=== PATIENT | female | born 1965 | race Caucasian/White ===

== ENCOUNTER 2024-03-28 06:47 | Observation (INO) ==
--- NOTE | 2024-02-19 10:59 | PAT Medication Instructions ---
Medication Instructions Date of Service February 19, 2024 Home Medications Canasa 1 dose MI UD PRN Ulcerative colitis flare up Lactobacillus 40-Bifidobact 3-S.thermophilus 100 billion cell capsule (Probiotic) 1 cap PO QAM inulin-sorbitol 2 gram chewable tablet 1 tab PO QAM multivitamin 1 tab PO QAM omeprazole 10 mg capsule,delayed release 10 mg PO DAILY PRN Heartburn paroxetine HCl 10 mg tablet (Paxil) 10 mg PO HS MEDICATION INSTRUCTIONS: ASK your prescriber and surgeon Canasa 1 dose MI UD PRN Ulcerative colitis flare up DO NOT take the morning of surgery Lactobacillus 40-Bifidobact 3-S.thermophilus 100 billion cell capsule (Probiotic) 1 cap PO QAM inulin-sorbitol 2 gram chewable tablet 1 tab PO QAM multivitamin 1 tab PO QAM Take morning of surgery With a small sip of water, OTHERWISE NOTHING TO EAT OR DRINK AFTER MIDNIGHT: omeprazole 10 mg capsule,delayed release 10 mg PO DAILY PRN Heartburn Take evening before surgery paroxetine HCl 10 mg tablet (Paxil) 10 mg PO HS Other Notes If you have any questions please call us at [phone] or [phone] or [phone] or [phone]
--- NOTE | 2024-03-04 09:26 | Anesthesiology Consultation ---
Date of Service March 04, 2024 Assessment & Plan (1) Encounter for pre-operative examination: Plan - Outpatient joint assessment: Patient is currently scheduled for inpatient pathway. If re-evaluated and patient/surgeon requests outpatient pathway, patient is acceptable candidate for outpatient joint program from anesthesia standpoint pending surgeon's office assessment of pt motivation/support/completion of same day joint program preop requirements. Chart Review Chart Review: Acceptable Risk for Surgery and Patient seen in Pre Admission Testing Teaching & Discussion Pre-Anesthesia Teaching/Discussion Notes: Instructed NPO after midnight before surgery, except medications with 15 cc of water. Medication instructions provided according to the PAT guidelines. History Surgery Operation Date: 03/28/24 08:00 Proposed Procedures p Left Total Knee Arthroplasty - Sundar Moore, Height/Weight Height: 5 ft 5 in Weight: 92.9 kg Allergies Allergy/AdvReac Type Severity Reaction Status Date / Time No Known Drug Allergies Allergy Verified 02/19/24 09:49 NSAIDS (Non-Steroidal AdvReac Severe nsaids can Verified 02/19/24 09:49 Anti-Inflamma flare up patient's Ulcerative Colitis Medications Home Medications Medication Instructions Recorded Confirmed Last Taken Canasa 1 dose MS UD PRN Ulcerative 02/19/24 02/19/24 Unknown colitis flare up Lactobacillus 40-Bifidobact 1 cap PO QAM 02/19/24 02/19/24 Unknown 3-S.thermophilus 100 billion cell capsule (Probiotic) inulin-sorbitol 2 gram chewable 1 tab PO QAM 02/19/24 02/19/24 Unknown tablet multivitamin 1 tab PO QAM 02/19/24 02/19/24 Unknown omeprazole 10 mg capsule,delayed 10 mg PO DAILY PRN Heartburn 02/19/24 02/19/24 Unknown release paroxetine HCl 10 mg tablet (Paxil) 10 mg PO HS 02/19/24 02/19/24 Unknown omega-3 fatty acids-fish oil 360 1 cap PO BID 03/04/24 03/04/24 Unknown mg-1,200 mg capsule (Fish Oil) Additional Notes: Patient states she also takes fish oil, she was advised and it was written on provided medication instructions to stop fish oil 2 weeks before surgery. She verbalized understanding and denied additional medications, questions or concerns. Past Medical History Medical History (Updated 03/04/24 @ 09:33 by Mary Christian PA-C) Anxiety GERD (gastroesophageal reflux disease) rare, controlled and stable per pt History of COVID-19 (06/2020) mild cold symptoms. resolved. Hx of melanoma of skin (05/2023) "early stages" s/p excision Hx of ulcerative colitis "very mild" - uses Canasa suppository PRN. last flare up "sometime in 2022". Motion sickness boating/swinging/carnival rides. no problems in the car Osteoarthritis Post-menopausal Patient denies h/o stroke, seizures, heart attack, heart failure, DM, HTN, blood clots/DVTs or blood transfusions. Exercise / Class Metabolic Activity II 4-5 Yardwork/Stairs/Walk up hill (denies chest discomfort or shortness of breath with one flight of stairs) Past Family History Family History Other No family history of adverse response to anesthesia Past Surgical History Surgical History History of colonoscopy History of dilatation and curettage History of esophagogastroduodenoscopy (EGD) History of melanoma excision (05/2023) Past Anesthesia History No Hx of Anesthesia Complications and Other (daughter with PONV) History of PONV No Hx of PONV and Hx of Motion Sickness Social History Smoking Status: Never smoker Do You Dip or Chew Tobacco: No Hx Alcohol Use: Yes alcohol intake frequency: a few times a month Hx Substance Use: No substance use type: does not use Review of Systems Snoring, denies witnessed apneas. Patient denies chest pain, shortness of breath, dyspnea on exertion, fever, chills, cough, wheezing, or palpitations. Physical Exam Vital Signs Vitals BP 131/84 P 72 TEMP 98.3 SP02 97% on RA RESP 18 Physical Patient resting comfortably in chair in no acute distress, alert and oriented, responding appropriately throughout visit Full cervical extension range of motion without pain TMD 3.5 finger breadths Mallampati Score 2 Dentition: several caps/crowns, denies chipped or loose teeth, implants or bridges Lungs: normal respiratory effort. Good air movement, clear throughout to auscultation, no adventitious breath sounds Cardiac: regular rate and rhythm, no murmurs noted Carotid arteries: negative bruit bilat Lab Results Anesthesia Preop Results Results Anesthesia Widget: PT 9.8 Seconds (9.0-12.0) 03/04/24 PTT 28 Seconds (21-31) 03/04/24 INR 0.9 (0.9-1.1) 03/04/24 Blood Type O Positive 03/04/24 Antibody Screen NEGATIVE 03/04/24 Testing Laboratory Results 02/21/24 WBC: 5.6 H/H: 13/42 PLATELETS: 245,000 SODIUM: 142 POTASSIUM: 3.8 CHLORIDE: 106 CO2: 25 BUN: 14 CREATININE: 0.7 GLUCOSE: 88 Alk phos: 60 ALT: 52 AST: 33 TSH: 2.0 Electrocardiogram Date: 03/04/24 NSR, rate 70 bpm Chest X-Ray Date: 03/04/24 No acute chest disease.
[~2024-03-28 06:47] MED LIST: BUPIVACAINE 0.25% PF 30 ML VIAL ONE; BUPIVACAINE 0.5 % 5 MG/1 ML PF 10ML VIAL ONE
[2024-03-28] MEDS: LR 500ML BOLUS, THEN 15ML/HR IV SCH (07:33)
[2024-03-28] MEDS ORDERED: MIDAZOLAM HCL 1 MG/ML 2ML VIAL ONE (07:41)
[2024-03-28] MEDS: ACETAMINOPHEN 500 MG TAB PO SCH ×2 (07:42→13:59)
[2024-03-28] MEDS: dexAMETHasone**PF** 10 MG/ML VIAL IV SCH (07:42)
[2024-03-28] MEDS: GABAPENTIN 600 MG DOSE PO SCH (07:43)
[2024-03-28] MEDS: FAMOTIDINE 20 MG TAB PO SCH (07:43)
[2024-03-28] MEDS: TRANEXAMIC ACID 1,000 MG **IV Pre-op IV SCH (08:47)
[2024-03-28] MEDS ORDERED: fentaNYL citrate PF 100 MCG/2 ML VIAL IV PRN (08:55)
[2024-03-28] MEDS ORDERED: ePHEDrine sulfate 50 MG/ML AMP IV PRN (08:55)
[2024-03-28] MEDS ORDERED: ATROPINE SULFATE 0.1 MG/ML 10ML SYR IV PRN (08:55)
[2024-03-28] MEDS ORDERED: PROMETHAZINE HCL 6.25 MG in SODIUM CHLORIDE 0.9% 50 ML IV PRN (08:55)
[2024-03-28] MEDS ORDERED: ONDANSETRON INJ 2 MG/ML 2 ML VIAL IV PRN ×2 (08:55→12:11)
--- NOTE | 2024-03-28 08:55 | History & Physical Bridge Note ---
Date of Service March 28, 2024 History & Physical Bridge Note I have examined the patient, reviewed the History & Physical and in the interval since the performance of the History & Physical I have noted the following changes of clinical significance: no changes noted
[2024-03-28] MEDS: ceFAZolin 2000MG 2,000 MG/15 ML SYR IV SCH ×2 (09:02→16:52)
[2024-03-28] MEDS: LR 60ML/HR IV SCH (09:06)
[2024-03-28] MEDS ORDERED: PROPOFOL IV EMULSION 10 MG/ML 20 ML VIAL IV ONE ×2 (09:25→09:31)
[2024-03-28] MEDS: ROPIV 0.5% 246mg, Ketorolac 30mg, EPINEPHrine 0.5mg in NSS INFIL SCH (09:30)
[2024-03-28] MEDS: TRANEXAMIC ACID 1,000 MG **IV Intra-op IV SCH (10:05)
[2024-03-28] MEDS ORDERED: PHENYLEPHRINE 100MCG/ML 10ML SYR IV ONE (10:06)
--- NOTE | 2024-03-28 10:12 | Operative Report ---
PG Post Operative Report Pre & Post Diagnosis Operation Date: 03/28/24 09:00 Pre-Op Diagnosis: Degenerative Joint Disease Left Knee Post-Op Diagnosis: Degenerative Joint Disease Left Knee I identified the patient and participated in the time-out.: Yes Procedure Operation Date: 03/28/24 09:00 Actual Procedures p Left Total Knee Arthroplasty(Left) - Sundar Moore DO Surgeon Sundar Moore DO Pig Breeder Sundar Pickens PA-C Estimated Blood Loss 30 Findings Consistent with Post-Op Diagnosis Specimens Left femoral tibial bone Description of Procedure Implants used: I used a Chari Persona total knee arthroplasty system with a size 6 standard PS femur, D tibia, 31 oval patella, and a size 14 CPS polyethylene bearing. All components were cemented in place with Biomet cement. Shahnaz arrived [facility] for the above procedure. She was seen in the preoperative holding area and the operative extremity was identified and signed. She was given a preoperative antibiotic, TXA, a spinal anesthetic and an adductor nerve block. She was taken back to the operating room and laid on the table in supine position. She was given basic sedation. The operative knee was then prepped and draped in sterile fashion. A timeout was done, and the patient and the operative extremity was properly identified. A midline incision was made directly over the patella. Dissection was taken down to the extensor mechanism. A subvastus arthrotomy was used. The medial retinaculum was released and the fat pad was mostly excised. The knee was flexed and the ACL, PCL, and meniscus were removed. A drill was sent down the center of the femoral canal followed by an intramedullary tiesha. Off that tiesha a distal femoral cutting block was placed. 9 mm was resected off the distal femur at 5 of valgus. A posterior referencing AP sizing guide was then placed on the distal femur. The femur measured to be a size 6. 2 drill holes were placed in 3 of external rotation. A 4-in-1 cutting block was then impacted into place. Anterior, posterior, and chamfer cuts were then made. The proximal tibia was then exposed. An external tibial alignment guide was placed. A tibial cut guide was then anchored in place and the proximal tibia was then resected. The posterior aspect of the knee was then opened up and any additional meniscus fragments and osteophytes were removed. The tibia measured to be a size D. The tibial plate was then placed in the appropriate rotation and the tibia was drilled and punched. Trial components were then placed. I used a size 14 CPS polyethylene insert. The knee was brought through a full range of motion and felt to be stable. The peg holes for the femoral component were then drilled. The patella was then everted and 9 mm was resected off the posterior aspect of the patella. The patella measured to be a size 31 oval. 3 peg holes were then drilled. A trial patella was placed. The knee was once again brought through a full range of motion and felt to be stable. Trial components were then removed. The surrounding soft tissues were injected with 100 cc of an orthopedic pain control cocktail. All components were then cemented into place with Biomet cement. The final polyethylene insert was then snapped into place. Once cement was dry the tourniquet was deflated. Hemostasis was obtained. A dilute betadyne lavage was then done for 3 minutes. The joint was then irrigated with normal saline solution. The subvastus arthrotomy was then closed with #1 Vicryl suture. The skin was closed with 2-0 Vicryl, 3-0V lock suture, and trey. A soft compressive dressing was placed. She was then transferred to a hospital bed and taken to the postanesthesia care unit in stable condition. She tolerated the procedure well. Sundar Pickens PA-C, was present for the entire procedure. He was critical for patient positioning, prepping, draping, retraction exposure, wound closure and application of sterile dressing. I attest to the content of the Intraoperative Record and any orders documented therein. Any exceptions are noted below.
[2024-03-28] MEDS ORDERED: HYDROmorphone INJ 0.5 MG/0.5 ML SYR IV PRN (12:11)
[2024-03-28] MEDS ORDERED: METOCLOPRAMIDE HCL INJ 5 MG/ML 2 ML VIAL IV PRN (12:11)
[2024-03-28] MEDS ORDERED: KETOROLAC 30 MG/ML VIAL IV SCH (12:11)
[2024-03-28] MEDS ORDERED: bisacodyL 10 MG SUPP PR PRN (12:11)
[2024-03-28] MEDS ORDERED: MAGNESIUM HYDROXIDE SUSP 30 ML UDC PO PRN (12:11)
[2024-03-28] MEDS ORDERED: NALOXONE HCL 0.4 MG/1 ML VIAL/CARP IV PRN (12:11)
[2024-03-28] MEDS: ORTHO JOINT ANESTHETIC ONE (12:12)
[2024-03-28] MEDS: SODIUM CHLORIDE 0.9% 1,000 ML IV SCH (12:44)
--- NOTE | 2024-03-28 13:50 | XRay Report ---
XR knee LT 1 or 2V routine CLINICAL HISTORY: Surgical Post Op TECHNIQUE: 2 views of the left knee were obtained. Comparison: None available at the time of this dictation. FINDINGS: Patient is status post total knee arthroplasty with expected postsurgical changes including soft tiss ue swelling and subcutaneous emphysema. No periarticular lucency or hardware fracture is seen. IMPRESSION: Expected postoperative appearance status post placement of total knee arthroplasty. ACT 112: Negative or not required by law. Electronically signed by: Rolf Cota M.D. 03/28/2024 1:48 PM
--- NOTE | 2024-03-28 14:27 | Anesthesiology Progress Note ---
Date of Service March 28, 2024 Anesthesia Post Procedure Vital Signs Vital Signs: Temp Pulse Pulse Pulse Resp BP BP 03/28/24 13:58 37.0 C 82 16 145/82 H 03/28/24 13:34 36.7 C 72 20 124/78 03/28/24 13:01 37.1 C 79 18 134/84 03/28/24 12:27 36.5 C 77 17 138/77 03/28/24 12:00 36.7 C 80 16 148/78 H 03/28/24 11:40 76 20 149/92 H 03/28/24 11:30 72 18 143/87 H 03/28/24 11:20 73 18 141/87 H 03/28/24 11:10 73 15 145/90 H 03/28/24 11:00 36.4 C L 77 12 136/87 03/28/24 10:50 76 16 136/86 03/28/24 10:40 71 18 141/87 H 03/28/24 10:35 70 20 129/82 03/28/24 10:29 36.5 C 96 H 16 123/83 03/28/24 07:34 36.9 C 82 17 143/98 H Pulse Ox O2 Del Method O2 Flow Rate 03/28/24 13:58 97 Room Air 03/28/24 13:34 98 Room Air 03/28/24 13:01 96 Room Air 03/28/24 12:27 98 Room Air 03/28/24 12:00 96 Room Air 03/28/24 11:40 98 Room Air 03/28/24 11:30 98 Room Air 03/28/24 11:20 96 Room Air 03/28/24 11:10 97 Room Air 03/28/24 11:00 97 Room Air 03/28/24 10:50 98 Room Air 03/28/24 10:40 98 Room Air 03/28/24 10:35 99 Oxymask 3 03/28/24 10:29 98 Oxymask 6 03/28/24 07:34 98 Room Air Transfer of Care Handoff Completed per policy Notes Mental Status: alert / awake / arousable and participated in evaluation Patient Amnestic to Procedure: Yes Nausea / Vomiting: adequately controlled Pain: adequately controlled Airway Patency, RR, SpO2: stable & adequate BP & HR: stable & adequate Hydration State: stable & adequate Neuraxial Anesthesia: was administered and sensory block is resolving Anesthetic Complications: no major complications apparent and Pt Satisfied with anesthetic care
[2024-03-28] MEDS: SENNA 8.6 MG TAB PO SCH (19:38)
[2024-03-28] MEDS: ASPIRIN 81 MG ECTAB PO SCH (19:38)
[2024-03-28] MEDS: DOCUSATE SODIUM 100 MG CAP PO SCH (19:38)
[2024-03-28] MEDS: PARoxetine HCL 10 MG TAB PO SCH (19:39)
[2024-03-29] MEDS: oxyCODONE HCL IR 5 MG TAB (IMMEDIATE RELEASE) PO PRN (01:00)
[2024-03-29] MEDS: dexAMETHasone 4 MG TAB PO SCH (08:17)
[2024-03-29] MEDS: MULTIVITAMIN TAB PO SCH (08:18)
--- NOTE | 2024-03-29 08:43 | Orthopedic Progress Note ---
Date of Service March 29, 2024 Assessment & Plan (1) Status post left knee replacement: Overall she is doing fairly well. She is not having too much pain in the left knee. We will change the dressing and then have her do physical therapy. She is on aspirin for DVT prophylaxis. She can be discharged home later today. She will follow-up orthopedics in 2 weeks. Fly Christie was seen and examined at bedside this morning. Overall she is doing fairly well. She has been up and ambulating to the bathroom. She does have some drainage and that is concerning her a little bit. She has no other complaints.. Review of Systems All systems reviewed & are unremarkable except as noted in HPI & below. Physical Exam On physical examination of left knee, there is some drainage along the medial aspect of the dressing. It is draining down to her MIREYA hose stocking. She has active motion of her ankle. Otherwise knee looks okay.. Results & Data Results & Data Laboratory Results . Diagnostic Findings Postoperative x-rays of the left knee show the prosthesis to be in anatomic alignment without any evidence of fracture complication, or loosening.. PG Care Time/CCT Total # of Minutes Spent Total Time Spent with Patient: Total time spent is greater than 50% in coordination of care (as documented) at patient's floor/unit and/or counseling patient: Coding Level of Care Code 57208 Post Operative Follow-Up Diagnoses Status post left knee replacement Z96.652
--- NOTE | 2024-03-29 08:44 | Discharge Summary ---
Date of Service March 29, 2024 Principal Diagnosis Same as "Discharge Diagnosis" noted below under Discharge Instructions. Discharge Exam On physical examination of left knee, there is some drainage along the medial aspect of the dressing. It is draining down to her MIREYA hose stocking. She has active motion of her ankle. Otherwise knee looks okay.. Discharge Data Procedures Performed Operation Date: 03/28/24 09:00 Actual Procedures p Left Total Knee Arthroplasty(Left) - Sundar Moore DO Ordered Studies 03/28/24 05:00 US - OR guided needle placemen Routine Hospital Course (1) Status post left knee replacement: On March 28, 2024 Shahnaz arrived at [facility] and underwent a left knee replacement without complication. She had a spinal anesthetic. Postoperatively she was started on aspirin for DVT prophylaxis and transferred to the general orthopedic floors. Her hospital course was uneventful. On postop day #1, her vital signs were stable and her pain was well-controlled. She was able to participate well with physical therapy doing ambulation and range of motion exercises. She was then discharged to home. She will follow-up orthopedics in 2 weeks. PG Care Time/CCT Total # of Minutes Spent Total Time Spent with Patient: Total time spent is greater than 50% in coordination of care (as documented) at patient's floor/unit and/or counseling patient: Discharge Plan Discharge Items Patient Disposition: Home - Self-Care Reason For Visit: Degenerative Joint Disease Left Knee Discharge Diagnosis: Left knee replacement Activity: Per Instructions section Non-emergency contact: Surgeon Call non-emergency contact if: your wound has increased redness and your wound has increased drainage Follow-up/Referrals: Guerrero Garcia DO [Primary Care Provider] - Diet: Regular Addtl Attending Provider Instructions: Activity and Therapy Recommendations: * If you are using [facility] then therapy will be provided at your home until they feel you have accomplished all of your goals. * If you are using [facility] then Physical Therapy will be provided until they feel you are ready to start Outpatient Physical Therapy. * If you are not using home therapy then Outpatient Physical Therapy should start about 3-5 days from your day of surgery. Therapy will last about 6-10 weeks * It is important not to put a pillow under your knee when you are relaxing or sleeping. It is just as important to make sure you are getting your knee perfectly straight as it is to regain your knee bend. * You were shown a series of exercises in the hospital. Do these exercises three times each day including the exercises you were shown in physical therapy. * Get up and walk several times each day. For the first four weeks, try not to stand or walk for more than one hour at a time. If you do stand or walk for more than one hour, you will not hurt anything, but your leg will likely swell. * As you feel comfortable, you may change from the walker or crutches to a cane and then to independent walking. Medications: * Narcotic You will likely be sent home from the hospital with a prescription for the narcotic pain medication that worked best throughout your stay. * Cefadroxil -take the antibiotic twice a day for 10 days to help prevent infection. * Aspirin Most patients will be required to take Aspirin 81mg twice a day for 6 weeks after surgery. This is obtained [id number] and a prescription is not necessary. * Other medications may be prescribed for specific circumstances. If you have any questions, please call the office at . * Resume previous home medications unless otherwise instructed TEDs/Elastic Stockings: The white elastic stockings help limit swelling and prevent blood clots from forming in your legs.~ The more you wear them, the more they work. Wear them for six weeks. Dressing Care: The dressing can be changed after physical therapy on postop day #1. Daily dry dressing changes for a few days, especially if the incision is still draining some. If the incision is not draining then you may leave the trey open to air. If there is a little bit of drainage or if the trey are getting stuck on your clothing then cover the incision with a dry dressing. The trey will be removed at your 2 week follow-up appointment. Showering: You may shower 5 days from the day of surgery as long as the incision is no longer draining. You may shower with the trey exposed. Let soapy water run over the trey and pat them dry. Do not scrub or soak the incision. Things To Watch For: * Drainage from the incision site that occurs more than one week after your surgery. * Increased redness at the incision site. * Fever above 102 degrees Fahrenheit. * Unusual chest pain or shortness of breath. * Call [facility] at with any of the above problems Follow-Up Visit: Follow-up with Dr. Moore's PA (Sundar Pickens) 2-3 weeks after your day of surgery. He will remove your trey and answer any questions. If you have any additional questions or concerns, Dr Moore is usually in the office at the same time and will be available An appointment was probably scheduled when you signed-up for surgery in the office. If you have any questions call Office Instructions: More detailed instructions as well as Frequently Asked Questions were provided in a folder by our office when you signed-up for surgery. Please review these instructions when you get home. If you have any further questions or concerns, please feel free to call the office at [phone] Pending Studies at Discharge: No Stand-Alone Forms: My [facility], Smoking Cessation Medications and DC Order Prescriptions: New oxycodone 5 mg Tablet 5 mg PO Q4H PRN (Reason: pain) Qty: 30 0RF cefadroxil 500 mg capsule 500 mg PO BID 10 Days Qty: 20 0RF aspirin 81 mg Tablet,Delayed Release (Dr/Ec) 81 mg PO BID 42 Days Qty: 0 0RF Continued paroxetine HCl [Paxil] 10 mg Tablet 10 mg PO HS multivitamin Tablet 1 tab PO QAM inulin-sorbitol 2 gram Tablet,Chewable 1 tab PO QAM Probiotic 100 billion cell Capsule 1 cap PO QAM omeprazole [Prilosec] 10 mg Capsule,Delayed Release(Dr/Ec) 10 mg PO DAILY PRN (Reason: Heartburn) Canasa 1 dose [place] UD PRN (Reason: Ulcerative colitis flare up) omega-3 fatty acids-fish oil [Fish Oil] 360-1,200 mg Capsule 1 cap PO BID Discharge Orders: Discharge Order (Routine); Ordered 03/29/24 Ordered By: Sundar Moore Admission Data Admit Date/Time: 03/28/24 09:43 Attending Provider: Sundar Moore Admit Provider: Sundar Moore Primary Care Provider: Guerrero Garcia Other Providers: [facility], [facility]
== END 2024-03-29 11:28 | disposition home or self-care (01) ==
LOC: ASU 06:47 → 3E 06:47